=== PATIENT | male | born 1985 | race Caucasian/White ===

== ENCOUNTER 2022-12-15 12:52 | Outpatient (CLI) | payer SELFPAY ==
[2022-12-20 12:35] LABS: Varicella-Zoster Virus Source Not Provided; Varicella-Zoster Virus by PCR Not Detected
== END 2022-12-15 12:53 | disposition home or self-care (01) ==
PROVIDERS: Visit Provider Family Medicine
DX: B01.9 Varicella without complication (principal)
CPT/HCPCS: 86787